=== PATIENT | female | born 1940 | race Caucasian/White ===

== ENCOUNTER → 2016-10-30 | Outpatient (CLI) | payer MEDICARE, OTHER ==
[~2016-10-30] MED LIST: ALEVE220 MG PO; ALLEGRA180 MG PO; CALTRATE 600 WI1 TAB PO; HARD NAILS2500 MCG PO; OCUVITE EYE +1 EACH PO; PROTONIX40 MG PO; PROVENTIL OR V6.7 GM INH
== END | disposition disaster alternative care site (69) ==
LOC: GBCOE 09:09
DX: Z12.31 Encounter for screening mammogram for malignant neoplasm of breast (principal); M81.0 Age-related osteoporosis without current pathological fracture; M25.549 Pain in joints of unspecified hand; Z78.0 Asymptomatic menopausal state; M85.832 Other specified disorders of bone density and structure, left forearm
CPT/HCPCS: G0202